=== PATIENT | female | born 1985 | race Caucasian/White ===

== ENCOUNTER 2019-07-25 04:06 | Inpatient (IN) | payer OTHER ==
[2019-07-25] MEDS ORDERED: Buffered Lidocaine 1% SYRIN* 1 ML/SYRINGE INTRADERM ONE (04:45)
[2019-07-25] MEDS ORDERED: Lactated Ringers 1000 ML Bag* 1,000 ML IV ONE ×2 (04:45→08:27)
[2019-07-25] MEDS ORDERED: Lactated Ringers 1000 ML Bag* 1,000 ML IV SCH ×3 (05:00→18:00)
--- NOTE | 2019-07-25 05:05 | HP ---
General Information - Reason for Visit Contractions picking up in past few hours - General Information Maternal Age: 34 Grav: 3 Para: 1 SAB: 0 IEA: 0 Estimated Due Date: 07/24/19 Determined By: LMP Maternal Blood Type and Rh: B Positive - Results this Serology/RPR Result: Non-Reactive Rubella Result: Immune HBsAg Result: Negative HIV Result: Negative GBS Culture Result: Negative Past Medical History Delivery History: See Records - SVB 05/2016 Pertinent Past Medical History: See Records Past Medical History Comment: Anxiety, depression--on Lexapro HTN vs GHTN Pertinent Past Surgical History: See Records Past Surgical History Comment: ORIF R ankle 2006, removal of hardware 2007 Pertinent Family History: See Records Family History Comment: Alcoholism HTN Anxiety Von Willebrand's dz, half sister Uterine cancer Stroke - Antepartal Records Antepartal Records: Reviewed, Complicated by: - AMA; increased BP Review of Systems Constitutional: Uncomfortable CV Complaint: No Respiratory: Shortness of Breath: No Gastrointestinal: No Nausea/Vomiting, Normal Bowel Movement Genitourinary: No Dysuria, No Bleeding, No Leaking Fluid Musculoskeletal: Contractions Neurological: No Headache, No Visual Changes Movement: Normal Exam Allergies/Adverse Reactions: Allergies kiwi Allergy (Verified 04/01/19 14:45) Difficulty Breathing/Wheezing Penicillins Allergy (Verified 04/01/19 14:45) Nausea And Vomiting BP 139/104, repeat 140/96 T 97.8 HR 85 - Measurements Height: 5 ft 8 in Weight: 187 lb Weight in lbs: [phone] Body Mass Index (BMI): 28.4 Pre- Weight: 155 lb Weight Gained This : 32 lbs and 0 ozs - Exam Breast: Breast Exam Deferred CVA: No CVA Tenderness Extremities: No Edema Heart: Normal Rhythm/Heart Sounds HEENT: No Significant Findings Lungs: Clear Bilaterally Rectal: Rectal Exam Deferred Reflexes: DTR 2+, - - no clonus Thyroid: - - WNL @ entry to care - Abdominal Exam Abdomen Exam: Non-Tender, Fundal Height Consistent with Dates - Ultrasound/Biophysical Profile Ultrasound Status: Not Done Targeted Exam Findings Estimated Weight: 7lb Cervical Exam: 2cm, 3cm Effacement: 80% Station: -1 Presenting Part: Vertex Membrane Status: Intact Bleeding/Discharge: None EFM Findings - External Monitor Findings Baseline Heart Rate: 130 External Monitor Findings: Accelerations Present, No Pattern of Variable or Late Decelerations, Variability Moderate Contractions: Regular, Moderate, 45-90 Seconds Contraction Frequency: q 2-4 min Assessment/Plan - Assessment IUP @ 40+1 weeks gestation in early labor. No evidence acidemia. Intact membranes. - Plan Plan: Admit - Anticipate Vaginal Delivery Plan Comment: Admit to L&D. Patient will desire epidural, will initiate IV and draw labs to include CMP, uric acid and UA. Anticipate SVB. - Date/Time of Admission Date of Admission: 07/25/19 Time of Admission: 04:59
[2019-07-25 05:23] LABS: ABS Eosinophils 0.1 10^3/ul (0-0.6); ABS Lymphocytes 2.3 10^3/ul (1.0-4.8); ABS Monocytes 0.5 10^3/ul (0-0.8); ABS Neutrophils 5.8 10^3/ul (1.5-7.7); Eosinophil % 0.6 %; Hematocrit 32 % (35-47); Hemoglobin 10.8 g/dL (12.0-16.0); Lymphocyte % 26.5 %; Mean Corpuscular HGB Conc 34 g/dL (31-36); Mean Corpuscular Hemoglobin 28 pg (27-31); Mean Corpuscular Volume 81 fL (80-97); Mean Platelet Volume 7.9 fL (7.4-10.4); Nucleated Red Blood Cells % 0.1; Platelet Count 193 10^3/uL (150-450); Red Blood Count 3.93 10^6 /uL (3.70-4.87); Red Cell Distribution Width 14 % (10-15); White Blood Count 8.7 10^3/uL (3.5-10.8)
[2019-07-25 05:26] LABS: Urine Appearance Cloudy; Urine Bilirubin Negative (Negative); Urine Blood Negative (Negative); Urine Color Straw; Urine Glucose Negative (Negative); Urine Ketones Negative (Negative); Urine Nitrite Negative (Negative); Urine Protein Negative (Negative); Urine Specific Gravity 1.004 (1.010-1.030); Urine Urobilinogen Negative (Negative)
[2019-07-25 05:43] LABS: Albumin 3.7 g/dL (3.2-5.2); Albumin/Globulin Ratio 1.3 (1-3); BUN/Creatinine Ratio 13.7 (8-20); Calcium 9.1 mg/dL (8.6-10.3); EGFR African American 165.1 (>60); EGFR Non-African American 136.5 (>60); Globulin 2.8 g/dL (2-4); Potassium 3.9 mmol/L (3.5-5.0); Total Bilirubin 0.6 mg/dL (0.2-1.0); Total Protein 6.5 g/dL (6.4-8.9); Uric Acid 3.8 mg/dL (2.3-6.6)
[2019-07-25 05:52] LABS: Urine Benzodiazepine Screen None Detected (None Detect); Urine Opiates Screen None Detected (None Detect)
[2019-07-25] MEDS ORDERED: OBEPIDURAL* 250 ML EPIDURAL ONE (07:35)
[2019-07-25] MEDS ORDERED: Lactated Ringers 1000 ML Bag* 500 ML IV PRN ×2 (08:27)
[2019-07-25] MEDS ORDERED: EPHEDrine (Pressors)* 50 MG/ML VIAL IV PUSH PRN ×2 (08:27)
[2019-07-25] MEDS ORDERED: Phenylephrine 40 MCG/ML SYRINGE IV PUSH PRN (08:27)
[2019-07-25] MEDS ORDERED: Sodium Citrate/Citric Acid* 15 ML UDC PO PRN (08:27)
[2019-07-25] MEDS ORDERED: Famotidine TAB* 20 MG PO PRN (08:27)
[2019-07-25] MEDS: Phenylephrine 40 MCG/ML SYRINGE IV PUSH PRN ×2 (08:37→09:30)
[2019-07-25] MEDS ORDERED: OBEPIDURAL* 250 ML EPIDURAL SCH (09:00)
--- NOTE | 2019-07-25 10:04 | PN ---
Progress Note - Progress Note Date of Service: 07/25/19 Note: S: Pt is comfortable with epidural. Wants to rest. O: BP 117/70, HR 82 FHR 130, +accels, no decels Ctx: 7-10 mins VE deferred. Last 2-3cm A: IUP@40+1 VSS No evidence of metabolic acidemia Irregular contractions P: Start low dose pitocin. Anticipate progression to .
[2019-07-25] MEDS: Oxytocin in LR* 20 UNITS/1,000 ML BAG IVPB ONE ×2 (17:30→17:31)
[2019-07-25] MEDS ORDERED: Witch Hazel PAD* JAR TOPICAL PRN (17:50)
[2019-07-25] MEDS ORDERED: Dibucaine 1% 28.35 GM TUBE PR PRN (17:50)
[2019-07-25] MEDS ORDERED: Glycerin ADULT SUPP PR PRN (17:50)
[2019-07-25] MEDS: Ibuprofen TAB* 600 MG PO PRN (20:19)
[2019-07-25] MEDS: Docusate CAP* 100 MG PO SCH (21:52)
[2019-07-26] MEDS: Ibuprofen TAB* 600 MG PO PRN ×3 (03:15→16:26)
--- NOTE | 2019-07-26 04:02 | PROCNOTE ---
[facility] OB: Delivery Note - Delivery A Date of : 07/25/19 Time of : 16:56 [place] Sex: Male Weight at : 7 lb 8 oz Score 1 Minute: 9 Score 5 Minutes: 9 Gestational Age in Weeks and Days at Delivery: 40 Weeks and 1 Days Delivery Method: Spontaneous Vaginal Labor: Spontaneous Did Patient attempt ?: N/A, No Previous Amniotic Fluid: Clear Estimated Blood Loss: 400 Anesthesia/Analgesia: CEI for Labor Delivered By: Abigail Ruiz Nursery Level of Nursery: Regular/Bedside - Perineum Perineal Injury: 2nd Degree Perineal Repair: By Delivering Practioner - Events Delivery Events of Note: Pitocin Only After Delivery, Supplemental O2 to Mother - Additional Delivery Notes Additional Delivery Notes: Normal spontaneous vertex delivery of live male, 7lbs 8oz and Apgars 9/9. Delivered left occipital-anterior (WILLY), nuchal cord x2. Body delivered without difficulty. Baby placed on mothers abdomen. Cord clamped and cut by FOB after pulsations ceased. Placenta delivered spontaneously via [place], appears intact , 3vc. Pitocin started and then stopped. Pt with kiwi allergy and potential cross reactivity with latex. Fundus firm with massage. Perineum and vagina inspected - second degree perineal laceration noted. Repaired with CEI infusing under local anesthesia. Normal anatomy restored, hemostatic. EBL 400mL. Mom and baby stable at time of note. Baby attempting to breastfeed.
[2019-07-26 06:04] LABS: ABS Lymphocytes 2.3 10^3/ul (1.0-4.8); ABS Monocytes 0.6 10^3/ul (0-0.8); ABS Neutrophils 7.4 10^3/ul (1.5-7.7); Eosinophil % 0.3 %; Hematocrit 28 % (35-47); Hemoglobin 9.5 g/dL (12.0-16.0); Lymphocyte % 22.6 %; Mean Corpuscular HGB Conc 34 g/dL (31-36); Mean Corpuscular Hemoglobin 28 pg (27-31); Mean Corpuscular Volume 81 fL (80-97); Mean Platelet Volume 7.7 fL (7.4-10.4); Platelet Count 171 10^3/uL (150-450); Red Blood Count 3.44 10^6 /uL (3.70-4.87); Red Cell Distribution Width 14 % (10-15); White Blood Count 10.4 10^3/uL (3.5-10.8)
[2019-07-26] MEDS: Docusate CAP* 100 MG PO SCH ×3 (09:30→21:01)
[2019-07-26] MEDS: Escitalopram * 10 MG TAB PO SCH (09:31)
[2019-07-26] MEDS: Ferrous Gluconate TAB* 324 MG TAB PO SCH ×2 (09:31→21:01)
[2019-07-26] MEDS: Simethicone TAB* 80 MG TAB.CHEW PO SCH ×2 (12:16→14:14)
[2019-07-26] MEDS: Acetaminophen TAB* 325 MG PO PRN ×2 (12:26→21:03)
--- NOTE | 2019-07-26 13:19 | CONSULT ---
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 Consult requested from liner machine operator team due to patient's development of elevated BP's during delivery that have persisted in the post period. On review of her BP's while in the hospital, they have been persistently mild range, predominately 130's-150's over 70's-90's. Her most recent BP's were 157/100 and 153/100. She has not had any severe range blood pressures throughout the course of her hospitalization. On review of her chart the patient did exhibit several borderline BP's throughout her gestation ~130's/80's, with two elevate BP's, including the first collected in at 126/90. Pt reports on interview today that she has experienced elevated BP's in the past, but report that she has never required treatment. She also states that her BP's were well controlled during her prior gestation in 2016. She underwent laboratory evaluation for PreE in this gestation at 36 weeks and her 24 hour urein protein at that time and all other labs were WNL. She has no complaints at this time. She denies LEMUS, changes invision, RUQ pain, n/v, cp, sob, dizziness, lightheadedness. Gen: nad, aaox3 CV: RRR Pulm: CTABL Abd: soft, nd, nttp, fundus firm below the U Ext: warm, nttp, 2+ refelexes in UE, 1 beat of clonus A/P: 34 y/o s/p at term, with elevated BP's: - Elevated BP's - suspect element of CHTN based on history and current finding. Although pt does exhibit 1 beat of clonus, she is otherwise asymptomatic and her evaluation is WNL. She has had no severe range BP's. UOP has been adequate. Will collect PreE lab evaluation now to assess Cr, Plts and Liver Enzymes. Will start on Labetalol 200mg BID given persistent BP's greater than 150/100. Will hold off on magnesium sulfate at this time given no evidence of PreE with severe features. Pt will need to follow up in office within 1 week of discharge for BP check. PreE precautions reviewed with patient. - Midwives will continue to provide primary post care to patient. Continue to monitor BP's and symptoms closely. Otherwise continue routine PP care. Pradip Ahn, DO [facility]
[2019-07-26] MEDS: Labetalol TAB* 200 MG PO SCH ×2 (15:00→21:01)
[2019-07-26 15:14] LABS: Hematocrit 30 % (35-47); Mean Corpuscular HGB Conc 34 g/dL (31-36); Mean Corpuscular Hemoglobin 27 pg (27-31); Mean Corpuscular Volume 82 fL (80-97); Mean Platelet Volume 7.8 fL (7.4-10.4); Platelet Count 218 10^3/uL (150-450); Red Blood Count 3.65 10^6 /uL (3.70-4.87); Red Cell Distribution Width 14 % (10-15); White Blood Count 10.3 10^3/uL (3.5-10.8)
[2019-07-26 15:39] LABS: Albumin 3.4 g/dL (3.2-5.2); Albumin/Globulin Ratio 1.4 (1-3); BUN/Creatinine Ratio 14.8 (8-20); Calcium 8.9 mg/dL (8.6-10.3); EGFR African American 154.6 (>60); EGFR Non-African American 127.7 (>60); Globulin 2.5 g/dL (2-4); Potassium 4.2 mmol/L (3.5-5.0); Total Bilirubin 0.4 mg/dL (0.2-1.0); Total Protein 5.9 g/dL (6.4-8.9)
[2019-07-27] MEDS: Ibuprofen TAB* 600 MG PO PRN ×2 (04:27→10:43)
[2019-07-27] MEDS: Docusate CAP* 100 MG PO SCH (07:56)
[2019-07-27] MEDS: Ferrous Gluconate TAB* 324 MG TAB PO SCH (07:56)
[2019-07-27] MEDS: Labetalol TAB* 200 MG PO SCH (07:56)
[2019-07-27] MEDS: Escitalopram * 10 MG TAB PO SCH (07:56)
[2019-07-27 11:27] VITALS: BP 133/81
== END 2019-07-27 12:22 | disposition home or self-care (01) | DRG 806 ==
LOC: MCHOBOUT 04:06 → MCHOB 04:59
PROVIDERS: ADMIT Midwife; ATTEND Advanced Practice Midwife
PROC: 10E0XZZ Delivery of Products of Conception, External Approach (ICD-10-PCS; principal; 2019-07-25)
PROC: 0KQM0ZZ Repair Perineum Muscle, Open Approach (ICD-10-PCS; 2019-07-25)
PROC: 10907ZC Drainage of Amniotic Fluid, Therapeutic from Products of Conception, Via Natural or Artificial Opening (ICD-10-PCS; 2019-07-25)
DX: O99.344 Other mental disorders complicating childbirth (principal); O10.92 Unspecified pre-existing hypertension complicating childbirth; Z37.0 Single live birth; F41.8 Other specified anxiety disorders; O13.4 Gestational [pregnancy-induced] hypertension without significant proteinuria, complicating childbirth; O70.1 Second degree perineal laceration during delivery; O48.0 Post-term pregnancy; O69.81X0 Labor and delivery complicated by cord around neck, without compression, not applicable or unspecified; Z3A.40 40 weeks gestation of pregnancy
CPT/HCPCS: 36415; 80053; 80307; 81003; 84550; 85025; 85027; 86850; 86900; 86901; A9270-GY; G0480